=== PATIENT | male | born 1955 | race Caucasian/White ===

== ENCOUNTER 2016-11-01 10:30 | Emergency (ER) | payer MEDICAID ==
--- NOTE | 2016-11-01 10:59 | CPEKG ---
Heart Rate: 91 RR Interval: 659 P-R Interval: 164 QRSD Interval: 76 QT Interval: 360 QTC Interval: 443 P Traphill: 21 QRS Traphill: 34 T Wave Traphill: 70 EKG Severity - NORMAL ECG - EKG Impression: SINUS RHYTHM Electronically Signed By: Handy Castillo 01-Nov-2016 11:49:48
[2016-11-01 11:32] VITALS: RESP 18
[2016-11-01] MEDS ORDERED: NS 1,000 ML IV ONE (11:35)
[2016-11-01 11:42] LABS: % IMMATURE GRANULYOCYTES 0.3 % (0.0-1.1); ABSOLUTE IMMATURE GRANULOCYTES 0.03 10^3/uL (0.00-0.10); ADD DIFF? NO; ADD MORPH? NO; ADD SCAN? NO; ATYPICAL LYMPHOCYTE FLAG 0 (0-99); FRAGMENT RBC FLAG 0 (0-99); HEMATOCRIT 47.5 % (40.0-51.0); LEFT SHIFT FLG 0 (0-99); LIPEMIA HEMOLYSIS FLAG 80 (0-99); MEAN CELL HEMOGLOBIN 30.6 pg (27.9-34.1); MEAN CELL HEMOGLOBIN CONCENTR. 33.7 g/dL (32.4-36.7); MEAN CELL VOLUME 90.8 fL (81.5-99.8); MEAN PLATELET VOLUME 9.1 fL (8.7-11.7); PLATELET CLUMPS FLAG 0 (0-99); PLATELET COUNT 319 10^3/uL (150-400); RED BLOOD CELL COUNT 5.23 10^6/uL (4.40-6.38); RED CELL DISTRIBUTION WIDTH 12.4 % (11.5-15.2)
[2016-11-01] MEDS ORDERED: MECLIZINE HCL 25 MG TAB PO ONE (11:44)
--- NOTE | 2016-11-01 11:44 | EDPHY ---
General - History Smoking Status: Never smoked Time Seen by Provider: 11/01/16 11:34 Narrative: CHIEF COMPLAINT: Dizziness, nausea, difficulty walking HISTORY OF PRESENT ILLNESS: Patient says he got up this morning at 4:00 a.m. is as he normally does. He proceeded to have some breakfast. He did have a sudden onset of dizziness. This was followed by difficulty walking down the hallway. Some associated headache and nausea with this. No vomiting. No chest pain. No abdominal pain. No urinary complaints. Patient has chronic pain and is on extensive medications. 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 He is now off of his Vicodin. He is not taking Percocet and tramadol. He says he is trying to get by on just the tramadol and feels that he may have taken too much over the past few days. He has had 16 pills over the past 3-4 days. He is taking 1/4 of a 15 mg OxyContin. This pain is there but no different for him. He has no difficulty with thought process. He has no tinnitus or changes in vision. No predictable modifying factors for this, other than some improvement rest. REVIEW OF SYSTEMS: Ten systems reviewed and are negative unless otherwise noted in the HPI PERTINENT MEDICAL HISTORY: Chronic EXAMINATION General Appearance: Alert, no distress Head: normocephalic, atraumatic Eyes: Pupils equal and round, no conjunctival pallor or injection. EOMs intact. Horizontal nystagmus. No vertical nystagmus. ENT, Mouth: Mucous membranes moist. Uvula midline. No erythema or edema. Neck: Normal inspection, supple, non-tender. No nuchal rigidity. No meningismus. Mild tenderness at baseline per patient. Respiratory: Lungs are clear to auscultation. No wheezing, rhonchi or crackles. Cardiovascular: Regular rate and rhythm. No murmur. Gastrointestinal: Abdomen is soft and nontender. No tympany rigidity. Neurological: A&O, nonfocal, no dysmetria. Normal [id number]. No pronator drift. Strength is symmetric in all limbs. Skin: Warm and dry, no rash Extremities: Nontender, no pedal edema Psychiatric: Mood and affect normal DIFFERENTIAL DIAGNOSES: Including but not limited to vertigo, dizziness, nausea, stroke, accidental overdose MDM: 11:45 a.m. Dizziness with reported difficulty walking, nausea but no vomiting. No chest pain. The patient is concerned that he may have taken too much tramadol over the past 2 days, but he has taken no more than 2 every 6 hours. He has no seizure-like activity. Vital signs are stable with hypertension. Normal examination with nonfocal, normal neuro examination. 12:55 p.m. Laboratory studies are within normal limits with a mild leukocytosis. I discussed the case with Dr. Gibbs and he is currently evaluating the patient. CT scans have not yet been performed or interpreted. 1:25 p.m. Patient is ambulating without any difficulty. This is a steady gait. Laboratory studies within acceptable limits. CT scan of the head is not yet been read by the radiologist. Plan for discharge home with meclizine as he is feeling much better with the treatment here. He is to contact his plate painter apprentice regarding the medication regimen that he has changed himself. Patient is comfortable with the plan and discharged home stable condition SUPERVISION: Patient was evaluated in conjunction with the supervising physician. Please see their note for details. (Mario Alberto Merritt) Medical Decision Makin: I assessed this patient as the supervising physician for JONE Lira. He reports sudden onset of dizziness and nausea this morning after breakfast. He does not feel more dizzy with movement and is only complaining of a headache. He will be road tested and discharged if he does well. (Kaden Gibbs) - Diagnostics Imaging Results: Imaging Impressions Head CT 11/01/16 11:44 Impression: No acute intracranial findings. Findings discussed with Mario Alberto Merritt PA-C, on November 01, 2016 at 1328 hours. - Objective Vital Signs: Initial Vital Signs Temperature (C) 97.5 F 11/01/16 10:43 Heart Rate 89 11/01/16 10:43 Respiratory Rate 11/01/16 10:43 Blood Pressure 166/114 H 11/01/16 10:43 O2 Sat (%) 94 11/01/16 10:43 O2 Delivery Mode Room Air Allergies/Adverse Reactions: No Known Allergies Allergy (Verified 11/01/16 10:41) Home Medications: Medication Instructions Recorded oxyCODONE IR [Oxycodone Ir (*)] 7.5 - 15 mg PO BID PRN 03/01/15 ALPRAZolam [Xanax 1 MG (*)] 1 - 2 mg PO HS PRN 05/08/16 Acyclovir [Zovirax 400 mg (*)] 400 mg PO BID 05/08/16 Albuterol Sulfate [Albuterol HFA 2 puffs IH Q4-6PRN PRN 05/08/16 17g] Chlorhexidine Gluconate [Peridex 30 ml PO BID@0900,2100 05/08/16 oral soln (*)] Hydrochlorothiazide [HCTZ (*)] 12.5 mg PO DAILY PRN 05/08/16 Lidocaine Nasal [place] (Compounded) 1 - 2 sprays NASAL QID PRN 05/08/16 Lisinopril [Zestril 40 mg (*)] 40 mg PO DAILY 05/08/16 Tamsulosin HCl [Flomax 0.4 MG (*)] 0.4 mg PO DAILY 05/08/16 traMADol [Ultram 50 mg (*)] 50 mg PO BID PRN 05/08/16 Aspirin 81 mg PO DAILY #0 tablet 05/09/16 Meclizine HCl [Meclizine HCl 25 mg 25 mg PO BID PRN #20 tab 11/01/16 (RX,OTC)] Laboratory Results: Laboratory Results 11/01/16 11:03 11/01/16 11:03 11/01/16 11/01/16 11/01/16 11:03 11:03 11:03 WBC 10.51 10^3/uL H 10^3/uL (3.80-9.50) RBC 5.23 10^6/uL 10^6/uL (4.40-6.38) Hgb 16.0 g/dL g/dL (13.7-17.5) Hct 47.5 % % (40.0-51.0) MCV 90.8 fL fL (81.5-99.8) MCH 30.6 pg pg (27.9-34.1) MCHC 33.7 g/dL g/dL (32.4-36.7) RDW 12.4 % % (11.5-15.2) Plt Count 319 10^3/uL 10^3/uL (150-400) MPV 9.1 fL fL (8.7-11.7) Neut % (Auto) 78.6 % H % (39.3-74.2) Lymph % (Auto) 17.3 % % (15.0-45.0) [place] % (Auto) 2.9 % L % (4.5-13.0) Eos % (Auto) 0.1 % L % (0.6-7.6) Baso % (Auto) 0.8 % % (0.3-1.7) Nucleat RBC Rel Count 0.0 % % (0.0-0.2) Absolute Neuts (auto) 8.26 10^3/uL H 10^3/uL (1.70-6.50) Absolute Lymphs (auto) 1.82 10^3/uL 10^3/uL (1.00-3.00) Absolute Monos (auto) 0.31 10^3/uL 10^3/uL (0.30-0.80) Absolute Eos (auto) 0.01 10^3/uL L 10^3/uL (0.03-0.40) Absolute Basos (auto) 0.08 10^3/uL 10^3/uL (0.02-0.10) Absolute Nucleated RBC 0.00 10^3/uL 10^3/uL (0-0.01) Immature Gran % 0.3 % % (0.0-1.1) Immature Gran # 0.03 10^3/uL 10^3/uL (0.00-0.10) PT 13.1 SEC SEC (12.0-15.0) INR 1.00 (0.83-1.16) APTT 27.0 SEC SEC (23.0-38.0) Sodium 140 mEq/L mEq/L (134-144) Potassium 4.1 mEq/L mEq/L (3.5-5.2) Chloride 105 mEq/L mEq/L (97-110) Carbon Dioxide 21 mEq/l L mEq/l (22-31) Anion Gap 14 mEq/L mEq/L (8-16) BUN 17 mg/dL mg/dL (7-23) Creatinine 0.8 mg/dL mg/dL (0.7-1.3) Estimated GFR > 60 Glucose 124 mg/dL H mg/dL (70-100) Calcium 9.7 mg/dL mg/dL (8.5-10.4) Total Bilirubin 0.9 mg/dL mg/dL (0.1-1.4) Conjugated Bilirubin 0.4 mg/dL mg/dL (0.0-0.5) Unconjugated Bilirubin 0.5 mg/dL mg/dL (0.0-1.1) AST 36 IU/L IU/L (17-59) ALT 53 IU/L IU/L (21-72) Alkaline Phosphatase 91 IU/L IU/L (38-126) Troponin I < 0.012 ng/mL ng/mL (0-0.034) NT-Pro-B Natriuret Pep 12 pg/mL pg/mL (0-125) Total Protein 7.9 g/dL g/dL (6.3-8.2) Albumin 4.9 g/dL g/dL (3.5-5.0) Lipase 293.0 IU/L IU/L (23-300) Medications Given: Discontinued Medications Sodium Chloride (Ns) 1,000 mls @ 0 mls/hr IV ONCE ONE PRN Reason: Wide Open Stop: 11/01/16 11:36 Last Admin: 11/01/16 11:56 Dose: 1,000 mls Meclizine HCl (Meclizine Hcl) 25 mg PO EDNOW ONE Stop: 11/01/16 11:45 Last Admin: 11/01/16 11:56 Dose: 25 mg Departure - Departure Disposition: Home, Routine, Self-Care Clinical Impression: Dizziness, Vertigo Condition: Good Instructions: Vertigo (ED) Additional Instructions: Meclizine as prescribed as needed. Contact primary care physician today to follow up this week. Return to ER for worsening symptoms, difficulty ambulating , headache, nausea vomiting, confusion or difficulty with speech Referrals: Riki Clark MD [Primary Care Provider] - As per Instructions Prescriptions: Meclizine HCl [Meclizine HCl 25 mg (RX,OTC)] 25 mg PO BID PRN #20 tab PRN Reason: Dizziness
[2016-11-01 12:00] LABS: TROPONIN I < 0.012 ng/mL (0-0.034)
[2016-11-01 12:01] LABS: PROTIME(PATIENT) 13.1 SEC (12.0-15.0)
[2016-11-01 12:04] LABS: ALANINE AMINOTRANSFERASE 53 IU/L (21-72); ALBUMIN 4.9 g/dL (3.5-5.0); ALKALINE PHOSPHATASE 91 IU/L (38-126); ANION GAP 14 mEq/L (8-16); ASPARTATE AMINOTRANSFERASE 36 IU/L (17-59); BILIRUBIN,TOTAL 0.9 mg/dL (0.1-1.4); BILIRUBIN-CONJUGATED 0.4 mg/dL (0.0-0.5); BILIRUBIN-UNCONJUGATED 0.5 mg/dL (0.0-1.1); CALCIUM 9.7 mg/dL (8.5-10.4); CARBON DIOXIDE 21 mEq/l (22-31); CHLORIDE 105 mEq/L (97-110); CREATININE 0.8 mg/dL (0.7-1.3); GLOMERULAR FILTRATION RATE > 60; GLUCOSE 124 mg/dL (70-100); POTASSIUM 4.1 mEq/L (3.5-5.2); SODIUM 140 mEq/L (134-144); TOTAL PROTEIN 7.9 g/dL (6.3-8.2)
[2016-11-01 13:55] VITALS: BP 168/100; PULSE 82; TEMP 98.4; O2SAT 92
== END 2016-11-01 13:49 | disposition home or self-care (01) ==
DX: R42 Dizziness and giddiness (principal); Z79.82 Long term (current) use of aspirin